=== PATIENT | female | born 1975 | race Caucasian/White ===

== ENCOUNTER 2017-11-24 16:18 | Emergency (ER) | payer BC ==
[~2017-11-24] VITALS: Ht 170.2 cm; Wt 56.7 kg
--- NOTE | 2017-11-24 16:30 | NUR ---
BBRA [id number] LEFT EYEBROW LAC S/P HITTING SELF WITH DOOR, NAD NOTED, VSS, RESP EVEN AND UNLABORED, PT WAS PUT ON MONITOR AND HOSPITAL GOWN. AT BS.
[2017-11-24] MEDS ORDERED: LIDOCAINE HCL/MPF 1% 30 ML VIAL IJ ONE (16:55)
[2017-11-24] MEDS ORDERED: TDAP [DIPH/PERTUSSIS/TET] 0.5 ML VIAL IM ONE ×2 (16:56→17:00)
[2017-11-24] MEDS ORDERED: ACETAMINOPHEN ES 500 MG TABLET ONE (16:56)
[2017-11-24] MEDS ORDERED: ONDANSETRON 4 MG TAB.RAPDIS ONE (16:56)
[2017-11-24] MEDS ORDERED: LIDOCAINE HCL/PF 1% 30 ML VIAL TP ONE (17:00)
[2017-11-24] MEDS ORDERED: ONDANSETRON 4 MG TAB.RAPDIS SL ONE (17:00)
[2017-11-24] MEDS ORDERED: ACETAMINOPHEN ES 500 MG TABLET PO ONE (17:00)
[2017-11-24 17:50] VITALS: BP 110/65
== END 2017-11-24 18:05 | disposition home or self-care (01) ==
LOC: ER 16:19
DX: S01.81XA Laceration without foreign body of other part of head, initial encounter (principal); S09.8XXA Other specified injuries of head, initial encounter; Z60.2 Problems related to living alone; W22.8XXA Striking against or struck by other objects, initial encounter; Y93.89 Activity, other specified; Y92.89 Other specified places as the place of occurrence of the external cause; Y99.8 Other external cause status
CPT/HCPCS: 90715; A4606; A6402; J3490; Q0162; Z7610